=== PATIENT | male | born 1995 | race Caucasian/White ===

== ENCOUNTER 2018-08-12 21:12 | Emergency (ER) | payer MEDICAID ==
[~2018-08-12] VITALS: Ht 172.7 cm; Wt 76.2 kg
[2018-08-12 21:16] VITALS: Ht 172.7 cm; Wt 76.2 kg
[2018-08-12 22:32] VITALS: BP 150/87
== END 2018-08-12 22:32 | disposition home or self-care (01) ==
LOC: ED 21:12
DX: R07.89 Other chest pain (principal); F12.90 Cannabis use, unspecified, uncomplicated; F41.9 Anxiety disorder, unspecified
CPT/HCPCS: Q0092

== ENCOUNTER 2019-03-19 18:21 | Emergency (ER) | payer MEDICAID ==
[~2019-03-19] VITALS: Ht 170.2 cm; Wt 86.2 kg
[2019-03-19 18:45] VITALS: Ht 170.2 cm; Wt 86.2 kg
[2019-03-19 20:19] VITALS: BP 132/81
== END 2019-03-19 20:19 | disposition home or self-care (01) ==
LOC: ED 18:21
DX: G89.29 Other chronic pain (principal); R51 Headache; F41.9 Anxiety disorder, unspecified; R22.0 Localized swelling, mass and lump, head